=== PATIENT | female | born 1990 | race Caucasian/White ===

== ENCOUNTER 2016-11-21 20:12 | Emergency (ER) | payer OTHER ==
[2016-11-21 21:28] VITALS: BP 126/79
--- NOTE | 2016-11-21 21:51 | UC ---
Lower Extremity/Ankle HPI - HPI Summary HPI Summary: patient hit the bottom of her foot on the edge of a water slide 2 days ago, continued pain on both sides of the right calcaneous - History of Current Complaint Chief Complaint: UCLowerExtremity Stated Complaint: RIGHT ANKLE INJURY Time Seen by Provider: 11/21/16 21:42 Hx Obtained From: Patient Hx Last Menstrual Period: 10/27/16 ?: No Onset/Duration: Sudden Onset, Lasting Days Severity Initially: Severe Severity Currently: Moderate Aggravating Factor(s): Standing, Ambulation Alleviating Factor(s): Rest Able to Bear Weight: Yes - with pain - Allergies/Home Medications Allergies/Adverse Reactions: Allergies Allergy/AdvReac Type Severity Reaction Status Date / Time Sulfa Drugs Allergy Intermediate GI Upset Verified 11/21/16 21:22 Home Medications: Home Medications Lansoprazole CAP (NF) [Prevacid CAP (NF)] 15 mg PO DAILY PRN 11/21/16 [History Confirmed 11/21/16] PARoxetine HCL TAB* [Paxil TAB*] 40 mg PO DAILY 11/21/16 [History Confirmed ] PMH/Surg Hx/FS Hx/Imm Hx Previously Healthy: Yes Endocrine History Of: Denies: Diabetes, Thyroid Disease Cardiovascular History Of: Denies: Cardiac Disorders, Hypertension Respiratory History Of: Reports: Asthma Denies: COPD GI/ History Of: Denies: Gastroesophageal Reflux, Ulcer, Gastrointestinal Bleed, Gall Bladder Disease, Kidney Stones, Diverticulitis, Renal Disease, Urosepsis Neurological History Of: Denies: TIA, CVA, Dementia, Seizures, Migraine Psychological History Of: Denies: Anxiety, Depression, Bipolar Disorder, Schizophrenia, Post Traumatic Stress Disorder Cancer History Of: Denies: Lung Cancer, Colorectal Cancer, Breast Cancer, Prostate Cancer, Cervical Cancer - Surgical History Surgical History: Yes Surgery Procedure, Year, and Place: 2010 - Family History Known Family History: Positive: Hypertension - Social History Alcohol Use: None Substance Use Type: None Smoking Status (MU): Heavy Every Day Tobacco Smoker Type: Cigarettes Amount Used/How Often: 1/2 PPD Have You Smoked in the Last Year: Yes Household Exposure Type: Cigarettes Review of Systems Constitutional: Negative Skin: Negative Eyes: Negative ENT: Negative Respiratory: Negative Cardiovascular: Negative Gastrointestinal: Negative Genitourinary: Negative Motor: Negative Neurovascular: Negative Musculoskeletal: Arthralgia Neurological: Negative Psychological: Negative All Other Systems Reviewed And Are Negative: Yes Physical Exam Triage Information Reviewed: Yes Appearance: Well-Appearing, Well-Nourished, Pain Distress Vital Signs: Initial Vital Signs Temp 98.4 F 11/21/16 21:24 Pulse 100 11/21/16 21:24 Resp 16 11/21/16 21:24 BP 126/79 11/21/16 21:24 Pulse Ox 99 11/21/16 21:24 Vital Signs Reviewed: Yes Eye Exam: Normal Eyes: Positive: Conjunctiva Clear ENT: Positive: Hearing grossly normal, Pharynx normal, TMs normal Dental Exam: Normal Neck exam: Normal Neck: Positive: Supple, Nontender, No Lymphadenopathy Respiratory Exam: Normal Respiratory: Positive: Chest non-tender, Lungs clear, Normal breath sounds Cardiovascular Exam: Normal Cardiovascular: Positive: RRR, No Murmur, Pulses Normal Abdominal Exam: Normal Abdomen Description: Positive: Nontender, No Organomegaly, Soft Bowel Sounds: Positive: Present Musculoskeletal: Positive: Strength Intact, ROM Intact, No Edema Neurological Exam: Normal Neurological: Positive: Alert, Muscle Tone Normal Psychological Exam: Normal Skin Exam: Normal Lower Extremity Course/Dx - Course Course Of Treatment: hx obtained, exam performed, meds reviewed, patient refused any pain medication. xray obtained, post op shoe given for added support - Differential Dx/Diagnosis Differential Diagnosis/HQI/PQRI: Contusion, Dislocation, Fracture (Closed), Sprain, Strain Provider Diagnoses: heel contusion Discharge - Discharge Plan Condition: Stable Disposition: HOME Patient Education Materials: Foot Contusion (ED) Additional Instructions: 1. warm foot soaks to bring new circulation. elevate when at rest, use the post of shoe for extra support.
--- NOTE | 2016-11-21 22:25 | RAD ---
Indication: Right ankle pain and swelling. 3 views of the right ankle demonstrates ankle mortise intact. Soft tissue swelling is noted laterally. IMPRESSION: Soft tissue swelling without evidence of fracture.
== END 2016-11-21 22:37 | disposition home or self-care (01) ==
LOC: UCCORT 20:12
DX: S90.31XA Contusion of right foot, initial encounter (principal); W22.8XXA Striking against or struck by other objects, initial encounter; J45.909 Unspecified asthma, uncomplicated; F17.210 Nicotine dependence, cigarettes, uncomplicated
CPT/HCPCS: 99212; G0463

== ENCOUNTER 2017-12-05 09:13 | Emergency (ER) | payer OTHER ==
[2017-12-05 10:33] VITALS: BP 124/78
--- NOTE | 2017-12-05 10:43 | UC ---
Lower Extremity/Ankle HPI - HPI Summary HPI Summary: rolled R ankle yesterday. c/o pain to outside of ankle and foot. fx R ankle end of last year so it twists easily. - History of Current Complaint Chief Complaint: UCLowerExtremity Stated Complaint: RIGHT ANKLE PAIN Time Seen by Provider: 12/05/17 10:37 Hx Obtained From: Patient Hx Last Menstrual Period: 11/05/17 Onset/Duration: Sudden Onset Pain Intensity: 7 Aggravating Factor(s): Ambulation Alleviating Factor(s): Nothing Able to Bear Weight: Yes - Risk Factors Septic Arthritis Risk Factor: Negative - Allergies/Home Medications Allergies/Adverse Reactions: Allergies Allergy/AdvReac Type Severity Reaction Status Date / Time Sulfa (Sulfonamide Allergy GI Upset Verified 12/05/17 10:34 Antibiotics) Home Medications: Home Medications Hydrocodone/Acetaminophen [Vicodin 5-300 mg] 1 tab PO ONCE PRN 12/05/17 [ History Confirmed 12/05/17] raNITIdine HCl [Ranitidine HCl] 150 - 300 mg PO DAILY 12/05/17 [History Confirmed 12/05/17] PMH/Surg Hx/FS Hx/Imm Hx GI/ History: Gastroesophageal Reflux Psychological History: Depression - Surgical History Surgical History: Yes Surgery Procedure, Year, and Place: gallbladder 2010 - Family History Known Family History: Positive: Hypertension - Social History Occupation: Unemployed Lives: With Family Alcohol Use: None Substance Use Type: None Smoking Status (MU): Heavy Every Day Tobacco Smoker Type: Cigarettes Amount Used/How Often: 1/2 PPD Have You Smoked in the Last Year: Yes Household Exposure Type: Cigarettes - Immunization History Vaccination Up to Date: Yes Review of Systems Constitutional: Negative Skin: Negative Eyes: Negative ENT: Negative Respiratory: Negative Cardiovascular: Negative Gastrointestinal: Negative Genitourinary: Negative Motor: Negative Neurovascular: Negative Musculoskeletal: Edema - R lateral ankle with pain. lateral foot pain Neurological: Negative Psychological: Negative Is Patient Immunocompromised?: No All Other Systems Reviewed And Are Negative: Yes Physical Exam Triage Information Reviewed: Yes Appearance: Well-Appearing Vital Signs: Initial Vital Signs Temp 97.8 F 12/05/17 10:23 Pulse 89 12/05/17 10:23 Resp 20 12/05/17 10:23 BP 124/78 12/05/17 10:23 Pulse Ox 97 05/07/18 10:23 Vital Signs Reviewed: Yes Eyes: Positive: Conjunctiva Clear ENT: Positive: Normal ENT inspection Neck: Positive: Supple, Nontender, No Lymphadenopathy Respiratory: Positive: Lungs clear, Normal breath sounds Cardiovascular: Positive: RRR, No Murmur Abdomen Description: Positive: Nontender, No Organomegaly, Soft Bowel Sounds: Positive: Present Musculoskeletal: Positive: Other: - RLE: hip, knee, achilles atraumatic. R lateral ankle with mild swelling and tenderness. 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 s/v/m to foot is intact. Neurological: Positive: Alert Psychological: Positive: Age Appropriate Behavior Skin Exam: Normal Diagnostics - Radiology No standard instances Xray Interpretation: No Acute Changes Radiology Interpretation Completed By: Radiologist - see reports Lower Extremity Course/Dx - Course Course Of Treatment: no fx, dislocation and no concern for infection - Differential Dx/Diagnosis Provider Diagnoses: Sprain R ankle/foot Discharge - Sign-Out/Discharge Documenting (check all that apply): Discharge/Admit/Transfer - Discharge Plan Condition: Stable Disposition: HOME Patient Education Materials: Ankle Sprain (DC), Foot Sprain (ED) Referrals: Awilda Newman MD [Primary Care Provider] - 7 Days Additional Instructions: TEE AND SPLINT UNTIL CLEARED - Billing Disposition and Condition Condition: STABLE Disposition: HOME
--- NOTE | 2017-12-05 11:13 | RAD ---
Indication: Right foot pain 3 views of the right foot are reviewed. There is no fracture or dislocation. Accessory ossicle adjacent to the navicular is noted. No other bone or joint abnormality is noted. The base of the fifth metacarpal is unremarkable. IMPRESSION: Accessory ossicle adjacent to the navicular. No fracture is noted.
--- NOTE | 2017-12-05 11:13 | RAD ---
Indication: Right ankle pain. 3 views of the right ankle demonstrates ankle mortise to be intact. There is no fracture or dislocation. No other bone or joint abnormality is noted. IMPRESSION: No fracture of the right ankle is noted.
== END 2017-12-05 11:32 | disposition home or self-care (01) ==
LOC: UCCORT 09:13
DX: S93.401A Sprain of unspecified ligament of right ankle, initial encounter (principal); X50.0XXA Overexertion from strenuous movement or load, initial encounter; Y93.9 Activity, unspecified; Y92.9 Unspecified place or not applicable; Z88.2 Allergy status to sulfonamides; K21.9 Gastro-esophageal reflux disease without esophagitis; F17.210 Nicotine dependence, cigarettes, uncomplicated
CPT/HCPCS: 99213; G0463